=== PATIENT | male | born 1990 | race Caucasian/White ===

== ENCOUNTER 2017-10-21 04:08 | Emergency (ER) | payer MEDICAID ==
[~2017-10-21] VITALS: Ht 172.7 cm; Wt 79.5 kg
[2017-10-21 04:20] VITALS: Ht 172.7 cm; Wt 79.5 kg
[2017-10-21 04:33] LABS: APPEARANCE HAZY (CLEAR); BILIRUBIN NEGATIVE (NEGATIVE); COLOR DK YELLOW (YELLOW); GLUCOSE NEGATIVE (NEGATIVE); KETONE NEGATIVE (NEGATIVE); NITRITE NEGATIVE (NEGATIVE); PROTEIN TRACE mg/dL (NEGATIVE); SPECIFIC GRAVITY 1.015 (1.005-1.020); UROBILINOGEN NORMAL (NORMAL)
[2017-10-21 04:38] LABS: UDS - AMPHET POSITIVE QUAL (NEGATIVE); UDS - BARB NEGATIVE QUAL (NEGATIVE); UDS - BENZO NEGATIVE QUAL (NEGATIVE); UDS - COCAINE NEGATIVE QUAL (NEGATIVE); UDS - OPIATE NEGATIVE QUAL (NEGATIVE); UDS - PCP NEGATIVE QUAL (NEGATIVE); UDS - THC POSITIVE QUAL (NEGATIVE)
[2017-10-21 04:39] LABS: BASOPHILS 0.1 % (0-2); EOSINOPHILS 0.1 % (0-7); HEMATOCRIT 46.7 % (42.0-54.0); HEMOGLOBIN 16.5 g/dL (13.5-17.5); IMMATURE GRANULOCYTES 0.3 % (0-5); LYMPHOCYTES 5.8 % (15-50); MCH 31.3 pg (26.0-34.0); MCHC 35.3 g/dL (31.0-37.0); MCV 88.4 fL (80.0-100.0); MEAN PLATELET VOLUME 9.8 fL (7.4-10.4); MONOCYTES 5.4 % (2-11); NEUTROPHILS 88.3 % (40-80); PLATELET COUNT 323 10x3/uL (130-400); RBC 5.28 10x6/uL (4.20-6.10); RDW 13.5 % (11.5-14.5); WBC 15.1 10x3/uL (4.8-10.8)
[2017-10-21 04:40] LABS: BACTERIA MODERATE /hpf (NONE SEEN); EPITHELIAL CELLS RARE /hpf (0-5); HYALINE CAST 0-5 /lpf (NONE SEEN); MUCUS >1+ /lpf (NONE SEEN); RED CELLS - URINE RARE /hpf (0-5); WHITE CELLS - URINE 0-5 /hpf (0-5)
[2017-10-21 04:41] LABS: GRANULAR CAST OCC /lpf (NONE SEEN)
[2017-10-21 04:54] LABS: ALBUMIN 4.9 g/dL (3.4-5.0); ANION GAP 16.1 mmol/L (8-16); BILIRUBIN - TOTAL 0.86 mg/dL (0.2-1.3); CALCIUM 9.9 mg/dL (8.5-10.1); CARBON DIOXIDE 24.5 mmol/L (21.0-32.0); CREATININE - SERUM 1.6 mg/dL (0.6-1.3); POTASSIUM - SERUM 3.6 mmol/L (3.5-5.1); PROTEIN - SERUM 8.5 g/dL (6.4-8.2)
[2017-10-21 11:54] VITALS: BP 128/83
== END 2017-10-21 12:37 | disposition other institution (70) ==
LOC: D.ER 04:08
PROVIDERS: Family Medicine
DX: R45.851 Suicidal ideations (principal)

== ENCOUNTER 2018-07-30 16:27 | Emergency (ER) | payer MEDICAID ==
[~2018-07-30] VITALS: Ht 172.7 cm; Wt 79.5 kg
[2018-07-30 16:51] VITALS: BP 118/72; Ht 172.7 cm; Wt 79.5 kg
[2018-07-30] MEDS ORDERED: VOLTAREN75 MG PO (19:26)
== END 2018-07-30 20:15 | disposition home or self-care (01) ==
LOC: D.ER 16:27
DX: M25.561 Pain in right knee (principal); V29.9XXA Motorcycle rider (driver) (passenger) injured in unspecified traffic accident, initial encounter; F17.200 Nicotine dependence, unspecified, uncomplicated